=== PATIENT | female | born 1970 | race African-American/Black ===

== ENCOUNTER 2017-05-08 03:47 | Inpatient (IN) | payer OTHER ==
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
[2017-05-08] MEDS ORDERED: MENTHOL/PHENOL 1 EACH UD MM PRN (05:12)
[2017-05-08] MEDS ORDERED: MAGNESIUM CITRATE 300 ML BOTTLE PO PRN (05:12)
[2017-05-08] MEDS ORDERED: ACETAMINOPHEN 325 MG TABLET (FP) PO PRN (05:12)
[2017-05-08] MEDS ORDERED: MAG HYDROX/AL HYDROX/SIMETH 30 ML UNIT-DOSE CUP PO PRN (05:12)
[2017-05-08] MEDS ORDERED: LOPERAMIDE HCL 2 MG CAPSULE PO PRN (05:12)
[2017-05-08] MEDS ORDERED: P-EPHED 60MG/TRIPROLIDI 2.5MG TABLET PO PRN (05:12)
[2017-05-08] MEDS ORDERED: MAGNESIUM HYDROX 2400MG/30ML ORAL SUSPENSION 30 ML CUP PO PRN (05:12)
[2017-05-08] MEDS ORDERED: NICOTINE POLACRILEX 2 MG GUM BC PRN (05:12)
[2017-05-08] MEDS ORDERED: METHADONE HCL 10 MG TABLET (FOR DETOX USE ONLY) PO ONE ×3 (05:12→23:00)
[2017-05-08] MEDS ORDERED: chlordiazePOXIDE HCL 25 MG CAPSULE PO PRN (05:12)
[2017-05-08] MEDS ORDERED: guaiFENesin/D-METHORPHAN HB 10 ML UNIT-DOSE CUPS PO PRN (05:12)
[2017-05-08] MEDS ORDERED: IBUPROFEN 400 MG TABLET (FP) PO PRN (05:12)
[2017-05-08 06:10] VITALS: BMI 36.4
[2017-05-08 09:47] LABS: HEMATOCRIT 37.8 % (32.4-45.2); HEMOGLOBIN 11.6 GM/dL (10.7-15.3); MCH 25.5 pg (25.7-33.7); MCHC 30.6 g/dl (32.0-36.0); MEAN CELL VOLUME 83.2 fl (80-96); PLATELET COUNT 394 K/MM3 (134-434); RBC 4.55 M/mm3 (3.60-5.2); RDW 17.6 % (11.6-15.6); WHITE BLOOD COUNT 8.2 K/mm3 (4.0-10.0)
[2017-05-08 09:56] LABS: CHLORIDE 108 mmol/L (98-107); POTASSIUM 3.9 mmol/L (3.5-5.1); SODIUM 143 mmol/L (136-145)
[2017-05-08] MEDS ORDERED: MONTELUKAST NA 10 MG TABLET PO SCH (10:00)
[2017-05-08] MEDS ORDERED: FLUTICASONE/SALMETEROL 100 MCG/50 MCG DISKUS IH SCH (10:00)
[2017-05-08 10:04] LABS: ALBUMIN 3.4 g/dl (3.4-5.0); ALK PHOS 76 U/L (45-117); ANION GAP 8 (8-16); BILIRUBIN,TOTAL 0.3 mg/dL (0.2-1.0); BLOOD UREA NITROGEN 16 mg/dL (7-18); CO2 27 mmol/L (21-32); GLUCOSE,RANDOM 101 mg/dL (74-106); SGOT/AST 17 U/L (15-37); SGPT/ALT 20 U/L (12-78); TOT PROT 6.2 g/dl (6.4-8.2)
[2017-05-08] MEDS: PRENATAL VITAMINS W/ FOLIC ACID TABLET (FP) PO SCH (11:06)
[2017-05-08] MEDS: chlordiazePOXIDE HCL 25 MG CAPSULE PO SCH ×3 (11:09→22:22)
[2017-05-08] MEDS: HYDROCHLOROTHIAZIDE 25 MG TABLET (FP) PO SCH (11:09)
[2017-05-08] MEDS: metFORMIN HCL 500 MG TABLET (FP) PO SCH ×2 (11:10→16:59)
[2017-05-08] MEDS: ASPIRIN COATED 81 MG TABLET.EC PO SCH (11:10)
[2017-05-08] MEDS: NICOTINE 14 MG/24 HOURS TOPICAL PATCH TD SCH (11:11)
[2017-05-08] MEDS: LISINOPRIL 5 MG TABLET (FP) PO SCH (11:11)
[2017-05-08] MEDS: ANORO ELLIPTA IH SCH (11:25)
--- NOTE | 2017-05-08 11:38 | PN ---
[facility] CIWA - CIWA Score Nausea/Vomitin-No Nausea/No Vomiting Muscle Tremors: 4-Moderate,w/Arms Extend Anxiety: 3 Agitation: 3 Paroxysmal Sweats: 3 Orientation: 0-Oriented Tacttile Disturbances: 0-None Auditory Disturbances: 0-None Visual Disturbances: 0-None Headache: 1-Very Mild CIWA-Ar Total Score: 14 BHS COWS - Scale Resting Pulse: 2= [place] 101-120 Sweatin=Flushed/Facial Moisture Restless Observation: 0= Sits Still Pupil Size: 0= Normal to Room Light Bone or Joint Aches: 2= Severe Diffuse Aches Runny Nose/ Eye Tearin= Runny Nose/Eyes GI Upset > 30mins: 2= Nausea/Diarrhea Tremor Observation of Outstretched Hands: 2= Slight Tremor Visible Yawning Observation: 2= >3x During Session Anxiety or Irritability: 2=Irritable/Anxious Goose Flesh Skin: 0=Smooth Skin COWS Score: 16 S Progress Note (SOAP) Subjective: sweats shakes interrupted sleep body aches irritable Objective: 05/08/17 11:36 Vital Signs Temperature 98.4 F 05/08/17 10:48 Pulse Rate 103 H 05/08/17 10:48 Respiratory Rate 18 05/08/17 10:48 Blood Pressure 139/74 05/08/17 10:48 O2 Sat by Pulse Oximetry (%) Laboratory Tests 05/08/17 05/08/17 05/08/17 07:30 07:30 07:30 WBC 8.2 RBC 4.55 Hgb 11.6 Hct 37.8 MCV 83.2 MCH 25.5 L MCHC 30.6 L RDW 17.6 H Plt Count 394 MPV 8.0 Sodium 143 Potassium 3.9 Chloride 108 H Carbon Dioxide 27 Anion Gap 8 BUN 16 Creatinine 1.0 Creat Clearance w eGFR 59.96 Random Glucose 101 Calcium 9.0 Total Bilirubin 0.3 AST 17 ALT 20 Alkaline Phosphatase 76 Total Protein 6.2 L Albumin 3.4 RPR Titer Nonreactive HIV 1&2 Antibody Screen HIV P24 Antigen 05/08/17 07:30 WBC RBC Hgb Hct MCV MCH MCHC RDW Plt Count MPV Sodium Potassium Chloride Carbon Dioxide Anion Gap BUN Creatinine Creat Clearance w eGFR Random Glucose Calcium Total Bilirubin AST ALT Alkaline Phosphatase Total Protein Albumin RPR Titer HIV 1&2 Antibody Screen Negative HIV P24 Antigen Negative aaox3 ambulating no acute distress u/a pending Assessment: 05/08/17 11:36 withdrawal sx Plan: continue detox increase fluids
--- NOTE | 2017-05-08 13:32 | EKG ---
Test Reason : Blood Pressure : / mmHG Vent. Rate : 082 BPM Atrial Rate : 082 BPM P-R Int : 160 ms QRS Dur : 094 ms QT Int : 392 ms P-R-T Axes : 076 063 077 degrees QTc Int : 457 ms NORMAL SINUS RHYTHM POSSIBLE LEFT ATRIAL ENLARGEMENT INCOMPLETE RIGHT BUNDLE BRANCH BLOCK BORDERLINE ECG NO PREVIOUS ECGS AVAILABLE Confirmed by GISELL RIVAS MD ([id number]) on 05/08/2017 1:32:08 PM Referred By: Confirmed By:GISELL RIVAS MD
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
[2017-05-08 18:45] LABS: URINE APPEARANCE SLCLOUDY; URINE BILIRUBIN NEGATIVE (NEGATIVE); URINE BLOOD NEGATIVE (NEGATIVE); URINE COLOR YELLOW; URINE GLUCOSE (UA) NEGATIVE (NEGATIVE); URINE KETONE NEGATIVE (NEGATIVE); URINE LEUK ESTERASE NEGATIVE (NEGATIVE); URINE NITRITE NEGATIVE (NEGATIVE); URINE PROTEIN NEGATIVE (NEGATIVE); URINE UROBILINOGEN NEGATIVE mg/dL (0.2-1.0)
[2017-05-08] MEDS: ATORVASTATIN CA 40 MG TABLET (FP) PO SCH (22:23)
[2017-05-08] MEDS: THIAMINE HCL 100 MG TABLET (FP) PO SCH (22:23)
[2017-05-08] MEDS: MONTELUKAST NA 10 MG TABLET PO SCH (22:23)
[2017-05-08] MEDS: PERPHENAZINE 4 MG TABLET PO SCH (22:23)
[2017-05-09] MEDS: chlordiazePOXIDE HCL 25 MG CAPSULE PO SCH ×4 (06:20→22:34)
[2017-05-09] MEDS: metFORMIN HCL 500 MG TABLET (FP) PO SCH ×2 (08:44→17:36)
[2017-05-09] MEDS ORDERED: METHADONE HCL 10 MG TABLET (FOR DETOX USE ONLY) PO SCH (10:00)
[2017-05-09] MEDS: ANORO ELLIPTA IH SCH (10:19)
[2017-05-09] MEDS: PRENATAL VITAMINS W/ FOLIC ACID TABLET (FP) PO SCH (10:20)
[2017-05-09] MEDS: ASPIRIN COATED 81 MG TABLET.EC PO SCH (10:20)
[2017-05-09] MEDS: LISINOPRIL 5 MG TABLET (FP) PO SCH (10:20)
[2017-05-09] MEDS: HYDROCHLOROTHIAZIDE 25 MG TABLET (FP) PO SCH (10:22)
[2017-05-09] MEDS: NICOTINE 14 MG/24 HOURS TOPICAL PATCH TD SCH (10:23)
--- NOTE | 2017-05-09 10:58 | PN ---
[facility] CIWA - CIWA Score Nausea/Vomitin-No Nausea/No Vomiting Muscle Tremors: 4-Moderate,w/Arms Extend Anxiety: 3 Agitation: 3 Paroxysmal Sweats: 3 Orientation: 0-Oriented Tacttile Disturbances: 0-None Auditory Disturbances: 0-None Visual Disturbances: 0-None Headache: 0-None Present CIWA-Ar Total Score: 13 BHS COWS - Scale Resting Pulse: 1= [place] 81-100 Sweatin=Flushed/Facial Moisture Restless Observation: 0= Sits Still Pupil Size: 0= Normal to Room Light Bone or Joint Aches: 1= Mild Discomfort Runny Nose/ Eye Tearin= Runny Nose/Eyes GI Upset > 30mins: 0= None Tremor Observation of Outstretched Hands: 1= Tremor Joseph, Not Seen Yawning Observation: 2= >3x During Session Anxiety or Irritability: 2=Irritable/Anxious Goose Flesh Skin: 0=Smooth Skin COWS Score: 11 [facility] Progress Note (SOAP) Subjective: agitation sweats shakes tired body aches Objective: 05/09/17 10:56 Vital Signs Temperature 98.1 F 05/09/17 10:00 Pulse Rate 90 05/09/17 10:00 Respiratory Rate 18 05/09/17 10:00 Blood Pressure 125/78 05/09/17 10:00 O2 Sat by Pulse Oximetry (%) Laboratory Tests 05/08/17 05/08/17 05/08/17 07:30 07:30 07:30 WBC 8.2 RBC 4.55 Hgb 11.6 Hct 37.8 MCV 83.2 MCH 25.5 L MCHC 30.6 L RDW 17.6 H Plt Count 394 MPV 8.0 Sodium 143 Potassium 3.9 Chloride 108 H Carbon Dioxide 27 Anion Gap 8 BUN 16 Creatinine 1.0 Creat Clearance w eGFR 59.96 POC Glucometer Random Glucose 101 Calcium 9.0 Total Bilirubin 0.3 AST 17 ALT 20 Alkaline Phosphatase 76 Total Protein 6.2 L Albumin 3.4 Urine Color Urine Appearance Urine pH Ur Specific [place] Urine Protein Urine Glucose (UA) Urine Ketones Urine Blood Urine Nitrite Urine Bilirubin Urine Urobilinogen Ur Leukocyte Esterase RPR Titer Hepatitis C Antibody 0.1 HIV 1&2 Antibody Screen HIV P24 Antigen 05/08/17 05/08/17 05/08/17 07:30 07:30 15:00 WBC RBC Hgb Hct MCV MCH MCHC RDW Plt Count MPV Sodium Potassium Chloride Carbon Dioxide Anion Gap BUN Creatinine Creat Clearance w eGFR POC Glucometer Random Glucose Calcium Total Bilirubin AST ALT Alkaline Phosphatase Total Protein Albumin Urine Color Yellow Urine Appearance Slcloudy Urine pH 5.0 Ur Specific [place] 1.023 Urine Protein Negative Urine Glucose (UA) Negative Urine Ketones Negative Urine Blood Negative Urine Nitrite Negative Urine Bilirubin Negative Urine Urobilinogen Negative Ur Leukocyte Esterase Negative RPR Titer Nonreactive Hepatitis C Antibody HIV 1&2 Antibody Screen Negative HIV P24 Antigen Negative 05/08/17 05/09/17 16:59 06:24 WBC RBC Hgb Hct MCV MCH MCHC RDW Plt Count MPV Sodium Potassium Chloride Carbon Dioxide Anion Gap BUN Creatinine Creat Clearance w eGFR POC Glucometer 125 105 Random Glucose Calcium Total Bilirubin AST ALT Alkaline Phosphatase Total Protein Albumin Urine Color Urine Appearance Urine pH Ur Specific [place] Urine Protein Urine Glucose (UA) Urine Ketones Urine Blood Urine Nitrite Urine Bilirubin Urine Urobilinogen Ur Leukocyte Esterase RPR Titer Hepatitis C Antibody HIV 1&2 Antibody Screen HIV P24 Antigen aaox3 ambulating no acute distress Assessment: 05/09/17 11:03 withdrawal sx Plan: continue detox increase fluids
[2017-05-09] MEDS: ATORVASTATIN CA 40 MG TABLET (FP) PO SCH (22:34)
[2017-05-09] MEDS: THIAMINE HCL 100 MG TABLET (FP) PO SCH (22:34)
[2017-05-09] MEDS: MONTELUKAST NA 10 MG TABLET PO SCH (22:34)
[2017-05-09] MEDS: PERPHENAZINE 4 MG TABLET PO SCH (22:34)
[2017-05-10] MEDS: chlordiazePOXIDE HCL 25 MG CAPSULE PO SCH (05:51)
[2017-05-10] MEDS: metFORMIN HCL 500 MG TABLET (FP) PO SCH ×2 (08:18→17:22)
[2017-05-10] MEDS: PRENATAL VITAMINS W/ FOLIC ACID TABLET (FP) PO SCH (10:24)
[2017-05-10] MEDS: LISINOPRIL 5 MG TABLET (FP) PO SCH (10:24)
[2017-05-10] MEDS: ANORO ELLIPTA IH SCH (10:24)
[2017-05-10] MEDS: ASPIRIN COATED 81 MG TABLET.EC PO SCH (10:24)
[2017-05-10] MEDS: HYDROCHLOROTHIAZIDE 25 MG TABLET (FP) PO SCH (10:24)
[2017-05-10] MEDS: chlordiazePOXIDE 5 MG CAPSULE PO SCH ×3 (10:25→22:18)
[2017-05-10] MEDS: NICOTINE 14 MG/24 HOURS TOPICAL PATCH TD SCH (10:25)
[2017-05-10] MEDS: METHADONE HCL 5 MG TABLET (FOR DETOX USE ONLY) PO SCH (10:25)
--- NOTE | 2017-05-10 10:44 | PN ---
BHS Progress Note (SOAP) Subjective: tired agitation sweats Objective: 05/10/17 10:44 Vital Signs Temperature 98.1 F 05/10/17 09:43 Pulse Rate 112 H 05/10/17 09:43 Respiratory Rate 18 05/10/17 09:43 Blood Pressure 118/68 05/10/17 09:43 O2 Sat by Pulse Oximetry (%) aaox3 ambulating no acute distress Assessment: 05/10/17 10:44 withdrawal sx Plan: continue detox increase fluids
[2017-05-10] MEDS: MONTELUKAST NA 10 MG TABLET PO SCH (22:18)
[2017-05-10] MEDS: THIAMINE HCL 100 MG TABLET (FP) PO SCH (22:18)
[2017-05-10] MEDS: ATORVASTATIN CA 40 MG TABLET (FP) PO SCH (22:18)
[2017-05-10] MEDS: PERPHENAZINE 4 MG TABLET PO SCH (22:21)
[2017-05-11] MEDS: chlordiazePOXIDE 5 MG CAPSULE PO SCH (06:26)
[2017-05-11] MEDS: metFORMIN HCL 500 MG TABLET (FP) PO SCH ×2 (06:27→17:19)
[2017-05-11] MEDS: ANORO ELLIPTA IH SCH (10:50)
[2017-05-11] MEDS: PRENATAL VITAMINS W/ FOLIC ACID TABLET (FP) PO SCH (10:50)
[2017-05-11] MEDS: METHADONE HCL 5 MG TABLET (FOR DETOX USE ONLY) PO SCH (10:50)
[2017-05-11] MEDS: LISINOPRIL 5 MG TABLET (FP) PO SCH (10:50)
[2017-05-11] MEDS: HYDROCHLOROTHIAZIDE 25 MG TABLET (FP) PO SCH (10:50)
[2017-05-11] MEDS: ASPIRIN COATED 81 MG TABLET.EC PO SCH (10:50)
[2017-05-11] MEDS: NICOTINE 14 MG/24 HOURS TOPICAL PATCH TD SCH (10:50)
[2017-05-11] MEDS: chlordiazePOXIDE HCL 10 MG CAPSULE PO SCH ×3 (10:53→22:46)
--- NOTE | 2017-05-11 12:57 | PN ---
S Progress Note (SOAP) Subjective: ALERT,IRRITABLE,ANXIOUS,INTERRUPTED SLEEP,TREMOR,PAIN IN THE BODY AND BACK Objective: 05/11/17 12:55 Vital Signs Temperature 100.4 F H 05/11/17 10:22 Pulse Rate 104 H 05/11/17 10:22 Respiratory Rate 18 05/11/17 10:22 Blood Pressure 128/69 05/11/17 10:22 O2 Sat by Pulse Oximetry (%) Laboratory Last Values WBC 8.2 K/mm3 (4.0-10.0) 05/08/17 07:30 RBC 4.55 M/mm3 (3.60-5.2) 05/08/17 07:30 Hgb 11.6 GM/dL (10.7-15.3) 05/08/17 07:30 Hct 37.8 % (32.4-45.2) 05/08/17 07:30 MCV 83.2 fl (80-96) 05/08/17 07:30 MCH 25.5 pg (25.7-33.7) L 05/08/17 07:30 MCHC 30.6 g/dl (32.0-36.0) L 05/08/17 07:30 RDW 17.6 % (11.6-15.6) H 05/08/17 07:30 Plt Count 394 K/MM3 (134-434) 05/08/17 07:30 MPV 8.0 fl (7.5-11.1) 05/08/17 07:30 Sodium 143 mmol/L (136-145) 05/08/17 07:30 Potassium 3.9 mmol/L (3.5-5.1) 05/08/17 07:30 Chloride 108 mmol/L (98-107) H 05/08/17 07:30 Carbon Dioxide 27 mmol/L (21-32) 05/08/17 07:30 Anion Gap 8 (8-16) 05/08/17 07:30 BUN 16 mg/dL (7-18) 05/08/17 07:30 Creatinine 1.0 mg/dL (0.55-1.02) 05/08/17 07:30 Creat Clearance w eGFR 59.96 (>60) 05/08/17 07:30 POC Glucometer 101 UNITS (80-120) 05/10/17 05:54 Random Glucose 101 mg/dL (74-106) 05/08/17 07:30 Calcium 9.0 mg/dL (8.5-10.1) 05/08/17 07:30 Total Bilirubin 0.3 mg/dL (0.2-1.0) 05/08/17 07:30 AST 17 U/L (15-37) 05/08/17 07:30 ALT 20 U/L (12-78) 05/08/17 07:30 Alkaline Phosphatase 76 U/L (45-117) 05/08/17 07:30 Total Protein 6.2 g/dl (6.4-8.2) L 05/08/17 07:30 Albumin 3.4 g/dl (3.4-5.0) 05/08/17 07:30 Urine Color Yellow 05/08/17 15:00 Urine Appearance Slcloudy 05/08/17 15:00 Urine pH 5.0 (5.0-8.0) 05/08/17 15:00 Ur Specific [place] 1.023 (1.001-1.035) 05/08/17 15:00 Urine Protein Negative (NEGATIVE) 05/08/17 15:00 Urine Glucose (UA) Negative (NEGATIVE) 05/08/17 15:00 Urine Ketones Negative (NEGATIVE) 05/08/17 15:00 Urine Blood Negative (NEGATIVE) 05/08/17 15:00 Urine Nitrite Negative (NEGATIVE) 05/08/17 15:00 Urine Bilirubin Negative (NEGATIVE) 05/08/17 15:00 Urine Urobilinogen Negative mg/dL (0.2-1.0) 05/08/17 15:00 Ur Leukocyte Esterase Negative (NEGATIVE) 05/08/17 15:00 RPR Titer Nonreactive (NONREACTIVE) 05/08/17 07:30 Hepatitis C Antibody 0.1 s/co ratio (0.0-0.9) 05/08/17 07:30 HIV 1&2 Antibody Screen Negative 05/08/17 07:30 HIV P24 Antigen Negative 05/08/17 07:30 Assessment: 05/11/17 12:56 WITHDRAWAL SYMPTOM Plan: CONTINUE DETOX,BGM MONITORING
[2017-05-11] MEDS: PERPHENAZINE 4 MG TABLET PO SCH (22:45)
[2017-05-11] MEDS: THIAMINE HCL 100 MG TABLET (FP) PO SCH (22:45)
[2017-05-11] MEDS: MONTELUKAST NA 10 MG TABLET PO SCH (22:46)
[2017-05-11] MEDS: ATORVASTATIN CA 40 MG TABLET (FP) PO SCH (22:46)
[2017-05-12] MEDS: chlordiazePOXIDE HCL 10 MG CAPSULE PO SCH (06:00)
[2017-05-12] MEDS: metFORMIN HCL 500 MG TABLET (FP) PO SCH ×2 (07:02→17:59)
[2017-05-12] MEDS ORDERED: METHADONE HCL 10 MG TABLET (FOR DETOX USE ONLY) PO SCH (10:00)
[2017-05-12] MEDS: ASPIRIN COATED 81 MG TABLET.EC PO SCH (10:52)
[2017-05-12] MEDS: HYDROCHLOROTHIAZIDE 25 MG TABLET (FP) PO SCH (10:52)
[2017-05-12] MEDS: LISINOPRIL 5 MG TABLET (FP) PO SCH (10:52)
[2017-05-12] MEDS: ANORO ELLIPTA IH SCH (10:52)
[2017-05-12] MEDS: PRENATAL VITAMINS W/ FOLIC ACID TABLET (FP) PO SCH (10:52)
[2017-05-12] MEDS: NICOTINE 14 MG/24 HOURS TOPICAL PATCH TD SCH (10:55)
--- NOTE | 2017-05-12 15:26 | PN ---
S Progress Note (SOAP) Subjective: MILD SWEATING IRRITABLE GI DISTRESS AGITATION TREMOR Objective: 05/12/17 15:24 Vital Signs Temperature 101.5 F H 05/12/17 10:00 Pulse Rate 112 H 05/12/17 10:00 Respiratory Rate 18 05/12/17 10:00 Blood Pressure 136/50 05/12/17 10:00 O2 Sat by Pulse Oximetry (%) Laboratory Last Values WBC 8.2 K/mm3 (4.0-10.0) 05/08/17 07:30 RBC 4.55 M/mm3 (3.60-5.2) 05/08/17 07:30 Hgb 11.6 GM/dL (10.7-15.3) 05/08/17 07:30 Hct 37.8 % (32.4-45.2) 05/08/17 07:30 MCV 83.2 fl (80-96) 05/08/17 07:30 MCH 25.5 pg (25.7-33.7) L 05/08/17 07:30 MCHC 30.6 g/dl (32.0-36.0) L 05/08/17 07:30 RDW 17.6 % (11.6-15.6) H 05/08/17 07:30 Plt Count 394 K/MM3 (134-434) 05/08/17 07:30 MPV 8.0 fl (7.5-11.1) 05/08/17 07:30 Sodium 143 mmol/L (136-145) 05/08/17 07:30 Potassium 3.9 mmol/L (3.5-5.1) 05/08/17 07:30 Chloride 108 mmol/L (98-107) H 05/08/17 07:30 Carbon Dioxide 27 mmol/L (21-32) 05/08/17 07:30 Anion Gap 8 (8-16) 05/08/17 07:30 BUN 16 mg/dL (7-18) 05/08/17 07:30 Creatinine 1.0 mg/dL (0.55-1.02) 05/08/17 07:30 Creat Clearance w eGFR 59.96 (>60) 05/08/17 07:30 POC Glucometer 113 UNITS (80-120) 05/11/17 16:41 Random Glucose 101 mg/dL (74-106) 05/08/17 07:30 Calcium 9.0 mg/dL (8.5-10.1) 05/08/17 07:30 Total Bilirubin 0.3 mg/dL (0.2-1.0) 05/08/17 07:30 AST 17 U/L (15-37) 05/08/17 07:30 ALT 20 U/L (12-78) 05/08/17 07:30 Alkaline Phosphatase 76 U/L (45-117) 05/08/17 07:30 Total Protein 6.2 g/dl (6.4-8.2) L 05/08/17 07:30 Albumin 3.4 g/dl (3.4-5.0) 05/08/17 07:30 Urine Color Yellow 05/08/17 15:00 Urine Appearance Slcloudy 05/08/17 15:00 Urine pH 5.0 (5.0-8.0) 05/08/17 15:00 Ur Specific [place] 1.023 (1.001-1.035) 05/08/17 15:00 Urine Protein Negative (NEGATIVE) 05/08/17 15:00 Urine Glucose (UA) Negative (NEGATIVE) 05/08/17 15:00 Urine Ketones Negative (NEGATIVE) 05/08/17 15:00 Urine Blood Negative (NEGATIVE) 05/08/17 15:00 Urine Nitrite Negative (NEGATIVE) 05/08/17 15:00 Urine Bilirubin Negative (NEGATIVE) 05/08/17 15:00 Urine Urobilinogen Negative mg/dL (0.2-1.0) 05/08/17 15:00 Ur Leukocyte Esterase Negative (NEGATIVE) 05/08/17 15:00 RPR Titer Nonreactive (NONREACTIVE) 05/08/17 07:30 Hepatitis C Antibody 0.1 s/co ratio (0.0-0.9) 05/08/17 07:30 HIV 1&2 Antibody Screen Negative 05/08/17 07:30 HIV P24 Antigen Negative 05/08/17 07:30 LAB NOTED Assessment: 05/12/17 15:25 WITHDRAWAL SX Plan: CONTINUE DETOX
[2017-05-12] MEDS: ATORVASTATIN CA 40 MG TABLET (FP) PO SCH (22:30)
[2017-05-12] MEDS: THIAMINE HCL 100 MG TABLET (FP) PO SCH (22:30)
[2017-05-12] MEDS: MONTELUKAST NA 10 MG TABLET PO SCH (22:30)
[2017-05-12] MEDS: PERPHENAZINE 4 MG TABLET PO SCH (22:31)
[2017-05-13] MEDS ORDERED: METHADONE HCL 5 MG TABLET (FOR DETOX USE ONLY) PO SCH (06:00)
[2017-05-13 06:16] VITALS: BP 114/69; PULSE 84; TEMP 98.1
[2017-05-13] MEDS: metFORMIN HCL 500 MG TABLET (FP) PO SCH (08:34)
--- NOTE | 2017-05-13 09:26 | DS ---
[facility] Detox Discharge Summary Admission Date: 05/08/17 Discharge Date: 05/13/17 - History Present History: Alcohol Dependence, Cocaine Dependence, Opioid Dependence - Physical Exam Results Vital Signs: Vital Signs Temperature 98.1 F 05/13/17 06:16 Pulse Rate 84 05/13/17 06:16 Respiratory Rate 18 05/13/17 06:16 Blood Pressure 114/69 05/13/17 06:16 O2 Sat by Pulse Oximetry (%) - Treatment Hospital Course: Detox Protocol Followed, Detoxed Safely, Responded well, Discharged Condition Good, Rehab Referral Accepted - Medication Discharge Medications: Ambulatory Orders Albuterol Sulfate Inhaler - [Ventolin HFA Inhaler -] 1 puff IH Q4H 07/08/15 Hydrochlorothiazide [Hctz -] 25 mg PO DAILY 07/12/15 Lisinopril 10 mg PO DAILY 07/12/15 Metformin HCl 500 mg PO BID 07/12/15 Simvastatin 40 mg PO DAILY 07/12/15 Aspirin [ASA -] 81 mg PO DAILY 12/04/15 Cetirizine HCl [Zyrtec -] 10 mg PO DAILY 12/04/15 Aspirin [Aspirin EC] 81 mg PO DAILY 05/08/17 Bupropion HCl [Bupropion Xl] 150 mg PO DAILY 05/08/17 Cetirizine HCl 10 mg PO HS 05/08/17 Hydrochlorothiazide [Hctz -] 25 mg PO DAILY 05/08/17 Lisinopril 5 mg PO DAILY 05/08/17 Hughson Carbonate 150 mg PO HS 05/08/17 Hughson Carbonate [Eskalith -] 300 mg PO DAILY 05/08/17 Metformin HCl 500 mg PO BID 05/08/17 Montelukast Sodium [Singulair] 10 mg PO DAILY 05/08/17 Perphenazine [Trilafon -] 16 mg PO HS 05/08/17 Simvastatin 40 mg PO DAILY 05/08/17 - Diagnosis (1) Opioid dependence with withdrawal Current Visit: Yes Status: Chronic (2) Alcohol dependence with uncomplicated withdrawal Current Visit: Yes Status: Chronic (3) Cocaine dependence, uncomplicated Current Visit: Yes Status: Chronic (4) Asthma Current Visit: Yes Status: Chronic Qualifiers: Asthma severity: mild Asthma persistence: unspecified Asthma complication type: uncomplicated Qualified Code(s): J45.909 - Unspecified asthma, uncomplicated (5) HTN (hypertension) Current Visit: Yes Status: Chronic (6) GERD (gastroesophageal reflux disease) Current Visit: Yes Status: Chronic (7) Hyperlipemia Current Visit: Yes Status: Chronic (8) Diabetes Current Visit: Yes Status: Chronic Qualifiers: Diabetes mellitus type: type 2 Diabetes mellitus complication status: without complication (9) COPD (chronic obstructive pulmonary disease) Current Visit: Yes Status: Chronic - AMA Did Patient Leave Against Medical Advice: No
[2017-05-13] MEDS: PRENATAL VITAMINS W/ FOLIC ACID TABLET (FP) PO SCH (09:37)
[2017-05-13] MEDS: ASPIRIN COATED 81 MG TABLET.EC PO SCH (09:37)
[2017-05-13] MEDS: LISINOPRIL 5 MG TABLET (FP) PO SCH (09:37)
[2017-05-13] MEDS: HYDROCHLOROTHIAZIDE 25 MG TABLET (FP) PO SCH (09:37)
[2017-05-13] MEDS: ANORO ELLIPTA IH SCH (09:37)
== END 2017-05-13 10:40 | disposition home or self-care (01) | DRG 897 ==
LOC: YASAS 03:47 → MERGE 04:08 → Y6N 04:08
PROVIDERS: ADMIT Internal Medicine; ATTEND Internal Medicine
PROC: HZ2ZZZZ Detoxification Services for Substance Abuse Treatment (ICD-10-PCS; principal; 2017-05-08)
DX: F11.23 Opioid dependence with withdrawal (principal); F14.20 Cocaine dependence, uncomplicated; F33.9 Major depressive disorder, recurrent, unspecified; F10.230 Alcohol dependence with withdrawal, uncomplicated; F25.9 Schizoaffective disorder, unspecified; F31.9 Bipolar disorder, unspecified; I10 Essential (primary) hypertension; K21.9 Gastro-esophageal reflux disease without esophagitis; E78.5 Hyperlipidemia, unspecified; E11.9 Type 2 diabetes mellitus without complications; Z79.84 Long term (current) use of oral hypoglycemic drugs; J45.909 Unspecified asthma, uncomplicated; J44.9 Chronic obstructive pulmonary disease, unspecified
CPT/HCPCS: 36415; 80053; 81003; 82962; 85027; 86593; 86803; 87389; 93005; 93010